=== PATIENT | male | born 1950 | race Caucasian/White ===

== ENCOUNTER → 2016-12-19 | Outpatient (CLI) | payer OTHER ==
[~2016-12-19] VITALS: Ht 190.5 cm; Wt 135.8 kg
[~2016-12-19] MED LIST: ALLEGRA ALLERGY60 MG PO; ALPRAZOLAM 0.50.5 M1 PO; CELEBREX 200 M200 M1 PO; CELEBREX 200 M200 MG PO; COLACE 100 MG100 MG PO; CYMBALTA30 MG PO; CYMBALTA60 MG PO; GLYCOLAX POWDER17 GM PO; HYDROCODON-ACE1 EAC7 PO; HYDROCODONE; HYDROCODONE-AP1 EA11 PO; HYDROCODONE-APA1 TA1 PO; LIPITOR 20 MG T20 M1 PO; MEDROLDOSEPACK PO; MOBIC15 MG PO; NEURONTIN 300300 M1 PO; NORCO 7.5-3251 EACH PO; OXYCODONE-ACET1 EAC2 PO; OXYCONTIN CR 2020 MG PO; OXYCONTIN10 MG PO; OXYCONTIN15 MG PO; PERCOCET 10-321 EACH PO; PERCOCET 7.5-31 EACH PO; PRINIVIL40 MG PO; ROBAXIN 750 MG750 M1 PO; TIZANIDINE HCL2 M1 PO; TORADOL 10 MG T10 MG PO; ZANAFLEX4 MG PO; ZESTORETIC 20-1 EAC3 PO; ZYRTEC 10 MG TA10 MG PO; [UNRECOGNIZED DRUG - OTHER] PO
--- NOTE | ~2016-12-19 | HPC ---
[facility] [place] [address] PAIN MANAGEMENT CONSULTATION Name: JENNIFERVINAYAK E Room #: REG [facility] Marya#: [id number] Admission: 12/19/16 Attend Phys: Lonny Pina DO Discharge: Date of : 48 Report #: [id number] THIS REPORT FOR: //name// CC: Vinayak Pina The patient is a very pleasant 66-year-old gentleman being treated for symptomatic lumbar radiculopathy. He has done well with occasional epidural injections, he had an injections in October, February, and July 2016. He returns to pain clinic today noting pain has begun to recur. It is in the low back, left buttock, and leg to the knee. He is having a little bit of pain in the right side as well. He describes it as a dull chronic pain up to 4 at present, gets worse with activity, standing and sitting. Some relief when he is recumbent. PHYSICAL EXAMINATION: Shows a pleasant 66-year-old gentleman, BMI is 37.4 kg/m2. Blood pressure is modestly elevated at 151/86, pulse 81, and respirations 20. Rises from chair using armrest. Gait is tandem. There is diffuse tenderness across the low back, positive straight leg raise on that left side with slight decreased left hip flexion, lower extremity extension strength. Reviewed diagnostic findings including CT lumbar spine from 2012 noting spondylosis at L5-S1 with facet joint arthropathy causing bilateral neural foraminal narrowing at L4-L5. ASSESSMENT: 1. Symptomatic lumbar radiculopathy by clinical exam, history of lumbar spondylosis, and myofascial pain. 2. Acute exacerbation of lumbar radiculopathy. RECOMMENDATIONS: 1. We will renew Meloxicam 15 mg 1 a day. 2. The patient notes hydrocodone really does not afford much relief and causes significant constipation, we will trial Robaxin 750 mg t.i.d. for spasm with 2 refills. 3. Lumbar epidural injection under fluoroscopy today at L5-S1. PROCEDURE: Lumbar epidural injection under fluoroscopy. PROCEDURE NOTE: After both written and informed consent to include risk of spinal cord damage, increased pain, weakness and dural puncture, the patient was taken to the fluoroscopy suite, placed in the prone position. After sterile prep and drape, a skin wheal with lidocaine was raised. A 22-gauge epidural Tuohy needle was inserted in the midline at L5-S1 with good loss to resistance. Negative aspiration for cerebrospinal fluid or blood was noted. Then 1 mL of Omnipaque under biplanar fluoroscopy showed good spread within the epidural space. This was followed with 80 mg of triamcinolone plus 1 mL of 1.5% [place] [address] PAIN MANAGEMENT CONSULTATION Name: VINAYAK RODRIGUEZ Room #: CHAS Malhotra#: [id number] Admission: 12/19/16 Attend Phys: Lonny Pina DO Discharge: Date of : 49 Report #: [id number] preservative-free Xylocaine, 0.5 mL Xylocaine was then injected to flush the needle; it was removed. The patient was monitored for an appropriate period of time and discharged in good and stable condition. <ELECTRONICALLY SIGNED> By: Lonny Pina DO 12/20/16 0925 [id number] Lonny Pina DO /nt
[2016-12-19 10:36] VITALS: BP 151/86
== END ==
LOC: PAIN 08:03
DX: M47.26 Other spondylosis with radiculopathy, lumbar region (principal); E11.9 Type 2 diabetes mellitus without complications; I10 Essential (primary) hypertension

== ENCOUNTER → 2017-08-08 | Outpatient (CLI) | payer OTHER ==
[~2017-08-08] VITALS: Ht 190.5 cm; Wt 136.4 kg
--- NOTE | ~2017-08-08 | HPC ---
[facility] [place] [address] PAIN MANAGEMENT CONSULTATION Name: JENNIFERVINAYAK E [facility] #: [facility] [id number] Admission: 08/08/17 Attend Phys: Lonny Pina DO Discharge: Date of : 48 Report #: [id number] THIS REPORT FOR: //name// CC: Vinayak Pina HISTORY OF PRESENT ILLNESS: The patient is a very pleasant 67-year-old gentleman well known to the pain clinic. He has been treated for symptomatic lumbar radiculopathy with excellent relief with epidural injections, occasionally over the past several years. Last injection was on 12/19/2016. He had 55% relief for 7 months, pain has begun to recur, although it is little bit different. He notes pain is in the low back, little bit in the right hip, more than the left. Describes a dull cramping sensation with his back "locking up." Rates his pain at 3 on a VAS, it does get worse throughout the day. PHYSICAL EXAMINATION: Shows a 67-year-old gentleman, BMI is 37.6 kilograms per meter squared. Vital signs stable as noted in the EMR. Rises from chair using armrest. Gait is tandem. Lower extremity strength is preserved. Straight leg raise negative. Tender over the SI joint with a positive SVETA test bilaterally, positive pelvic distraction, positive Gaenslen's and positive pelvic compression. He does have a component of right radicular pain, modestly positive straight leg raise on the right. ASSESSMENT: 1. Symptomatic sacroiliac joint dysfunction by clinical exam. 2. History of lumbar radiculopathy by history. RECOMMENDATIONS: 1. After discussion with the patient today, we have elected to renew hydrocodone 7.5/325, dispensed 60 tablets to take p.r.n. 2. Proceed with bilateral SI joint injection under fluoroscopy. If this does not afford adequate relief, we will consider repeat lumbar epidural injection. The patient states pain feels somewhat similar to his prior issues, but again physical exam definitely points to more SI mediated pain. PROCEDURE: Bilateral SI joint injection under fluoroscopy. PROCEDURE NOTE: After written and informed consent was obtained including risk of infection, nerve trauma, increased pain and weakness, the patient wishes to proceed. The patient was taken to the fluoroscopy suite, placed in the prone position. The sacroiliac joint was visualized using the C-arm, turned in an oblique fashion to align the joint. The skin overlying the area was cleansed with ChloraPrep. Skin wheal with Xylocaine was raised. A 22 gauge spinal needle was inserted into the inferior aspect of the joint. A low volume extension tubing was then attached to the needle after the stylet was removed. Negative aspiration was accomplished. A 1 mL of Omnipaque was injected which showed spread within the SI joint. 40 mg triamcinolone plus 2 mL of 0.5% [address] [address] PAIN MANAGEMENT CONSULTATION Name: JENNIFERVINAYAK E Room #: REG [facility] Malhotra#: [id number] Admission: 08/08/17 Attend Phys: Lonny Pina DO Discharge: Date of : 48 Report #: [id number] preservative-free bupivacaine was injected into the joint. Needle was removed. Attention was then turned to the contralateral joint which was treated in an identical fashion. After both needles were removed the prep was washed off. Two Band-Aids were applied over the puncture sites. The patient was allowed to ambulate to the recovery room, monitored for an appropriate period of time, discharged in good and stable condition. By: 1212 2235 Lonny Pina DO /nt
[2017-08-08 11:02] VITALS: BP 138/83
== END | disposition home or self-care (01) ==
LOC: PAIN 07:00
DX: M53.3 Sacrococcygeal disorders, not elsewhere classified (principal); M54.16 Radiculopathy, lumbar region; Z79.891 Long term (current) use of opiate analgesic; Z79.899 Other long term (current) drug therapy; Z91.041 Radiographic dye allergy status; Z98.890 Other specified postprocedural states

== ENCOUNTER → 2017-08-15 | Outpatient (CLI) | payer OTHER ==
[~2017-08-15] VITALS: Ht 193 cm; Wt 135.2 kg
[~2017-08-15] MED LIST changes: +HYDROCHLOROTH12.5 M1 PO; +LISINOPRIL20 MG PO; +NORVASC2.5 MG PO
--- NOTE | ~2017-08-15 | HPC ---
[facility] [place] [address] PAIN MANAGEMENT CONSULTATION Name: JENNIFERVINAYAK E Room #: REG [facility] Marya#: [id number] Admission: 08/15/17 Attend Phys: Lonny Pina DO Discharge: Date of : 49 Report #: [id number] THIS REPORT FOR: //name// CC: Vinayak Pina HISTORY OF PRESENT ILLNESS: The patient is a very pleasant 67-year-old gentleman well known to pain clinic, typically treated for symptomatic lumbar radiculopathy, was seen in pain clinic on 08/08/2017. Pain began to recur but is a little different. He had pain over the SI joints with positive Patricio test, positive distraction and positive Gaenslen's test. I proceeded with bilateral SI joint injections. He returns to pain clinic today noting that the SI mediated back pain is overall improved, per patient some 50% for a few days but ongoing lumbar radicular pain radiating on the lateral aspect of the left leg into the lower leg continues. He rates the pain of 4 on a VAS. PHYSICAL EXAMINATION: GENERAL: Otherwise, relatively unchanged, 67-year-old gentleman. VITAL SIGNS: BMI is 36.3 kilograms per meter squared. MUSCULOSKELETAL: Rises from chair using armrest. Diffuse tenderness across the low back, though the SI tests are less remarkable today. Does have a positive straight leg raise on the left with slight decreased plantar flexion strength. Reviewed diagnostic findings again somewhat dated from 2012 but does have degenerative changes with disk bulging L2-L3 through L5-S1. There is anterolisthesis at L5-S1. ASSESSMENT: Symptomatic lumbar radiculopathy with clinical exam and history. RECOMMENDATIONS: Epidural injection under fluoroscopy today, L5-S1. Follow up simply as needed. PROCEDURE: Lumbar epidural injection under fluoroscopy. PROCEDURE NOTE: After both written and informed consent to include risk of spinal cord damage, increased pain, weakness and dural puncture, the patient was taken to the fluoroscopy suite, placed in the prone position. After sterile prep and drape, a skin wheal with lidocaine was raised. A 22-gauge epidural Tuohy needle was inserted in the midline at L5-S1 with good loss to resistance. Negative aspiration for cerebrospinal fluid or blood was noted. Then 1 mL of Omnipaque under biplanar fluoroscopy showed good spread within the epidural space. This was followed with 80 mg of triamcinolone plus 1 mL of 1.5% preservative-free Xylocaine, 0.5 mL Xylocaine was then injected to flush the [address] [address] PAIN MANAGEMENT CONSULTATION Name: VINAYAK RODRIGUEZ [facility] [id number] Admission: 08/15/17 Attend Phys: Lonny Pina DO Discharge: Date of : 48 Report #: [id number] needle; it was removed. The patient was monitored for an appropriate period of time and discharged in good and stable condition. By: 1228 2137 Lonny Pina DO /bernadine
[2017-08-15 10:52] VITALS: BP 152/97
== END | disposition home or self-care (01) ==
LOC: PAIN 06:23
DX: M54.16 Radiculopathy, lumbar region (principal); G89.29 Other chronic pain; Z98.890 Other specified postprocedural states; Z91.041 Radiographic dye allergy status; Z79.899 Other long term (current) drug therapy; Z79.891 Long term (current) use of opiate analgesic

== ENCOUNTER → 2018-01-23 | Outpatient (CLI) | payer OTHER ==
[~2018-01-23] VITALS: Ht 193 cm; Wt 83.0 kg
--- NOTE | ~2018-01-23 | HPC ---
[facility] [address] [place] [address] PAIN MANAGEMENT CONSULTATION Name: JENNIFERVINAYAK Alicia [facility] #: [facility] [id number] Admission: 01/23/18 Attend Phys: Lonny Pina, DO Discharge: Date of : 49 Report #: [id number] THIS REPORT FOR: //name// CC: Vinayak Pina The patient is an extremely pleasant 67-year-old gentleman well known to pain clinic, typically treated for symptomatic lumbar radiculopathy. He does well with occasional epidural injections, last injection was 08/15/2017. That afforded 80% relief for 4-5 months. Pain has begun to recur without antecedent trauma and overuse. Notes pain is primarily low back, left buttock and leg, posterior aspect. Fortunately, he denies any myelopathic symptoms, no weakness, paresthesia or bowel or bladder continence changes. Rates the pain as a 3 on a VAS at present, but with activity, gets up to 6-8. He has stopped taking meloxicam, takes an occasional ibuprofen and methocarbamol for spasm. PHYSICAL EXAMINATION: Shows a pleasant 67-year-old gentleman, 6 feet 4 inches, BMI is 22.3 kilograms per meter squared. Blood pressure is 155/77, pulse 80S, respirations 15. Alert and oriented to person, place and time, judged to be a reasonable historian. Rises from chair easily. Gait is modestly antalgic. Positive straight leg raise on the right with slight decreased plantar flexion strength. 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 Suspect, this has only gotten worse over the last 5 years. ASSESSMENT: Symptomatic lumbar radiculopathy by clinical exam and history in a gentleman who has done well with occasional epidural injections. RECOMMENDATION: Lumbar epidural injection under fluoroscopy today, left midline L5-S1. Follow up simply as needed. PROCEDURE: Midline epidural injection under fluoroscopy. PROCEDURE NOTE: After both written and informed consent to include risk of spinal cord damage, increased pain, weakness and dural puncture, the patient was taken to the fluoroscopy suite, placed in the prone position. After sterile prep and drape, a skin wheal with lidocaine was raised. A 22-gauge epidural Tuohy needle was inserted in the midline at L5-S1 with good loss to resistance. Negative aspiration for cerebrospinal fluid or blood was noted. No Omnipaque was used secondary to an IODINE allergy. This was followed with 80 mg of triamcinolone plus 1 mL of 1.5% preservative-free Xylocaine, 0.5 mL Xylocaine was then injected to flush the needle; it was removed. The patient was [address] [address] PAIN MANAGEMENT CONSULTATION Name: VINAYAK RODRIGUEZ Alicia Room #: REG [facility] Malhotra#: [id number] Admission: 01/23/18 Attend Phys: Lonny Pina DO Discharge: Date of : 49 Report #: [id number] monitored for an appropriate period of time and discharged in good and stable condition. <ELECTRONICALLY SIGNED> By: Lonny Pina DO 01/26/18708 1203 06 Lonny Pina DO /nt
[2018-01-23 09:08] VITALS: BP 155/77
== END | disposition home or self-care (01) ==
LOC: PAIN 07:26
DX: M54.16 Radiculopathy, lumbar region (principal); G89.29 Other chronic pain; Z98.890 Other specified postprocedural states; Z91.041 Radiographic dye allergy status; Z79.899 Other long term (current) drug therapy

== ENCOUNTER → 2018-08-04 | Outpatient (CLI) | payer OTHER ==
[~2018-08-04] VITALS: Ht 190.5 cm; Wt 133.9 kg
--- NOTE | ~2018-08-04 | P ---
[facility] [place] [address] PROCEDURE REPORT Name: VINAYAK RODRIGUEZ Alicia [facility] [id number] Admission: 08/04/18 Attend Phys: Reginald Pina DO Discharge: Date of : 48 Report #: [id number] THIS REPORT FOR: //name// CC: Nj Reese MD DATE OF SERVICE: 08/04/2018 DESCRIPTION OF PROCEDURE: L5-S1 left paramedian epidural steroid injection under fluoroscopic guidance. After obtaining written consent, the patient was taken back to fluoroscopy suite, placed in prone position with pillow under abdomen to decrease lumbar lordosis. Skin overlying lumbosacral area then prepped and draped in aseptic fashion. The L5-S1 vertebral interspace identified by AP fluoroscopy. Skin and subcutaneous tissue overlying target site of injection anesthetized with 3 mL of 1% lidocaine. A 20-gauge 3-1/2-inch Tuohy needle advanced under fluoroscopic guidance towards the epidural space using left paramedian approach. Epidural space identified using loss of resistance to air technique. Due to a contrast allergy, no contrast agent was utilized in today's procedure. Needle positioning was confirmed using both AP and lateral fluoroscopy. After negative aspiration for heme or cerebrospinal fluid, 5 mL of a solution containing 2 mL, 40 mg per mL, 80 mg total triamcinolone, 3 mL lidocaine 1% injected slowly. Needle retracted longterm, flushed with 1 mL of 1% lidocaine and removed. Sterile bandage placed over injection site. No new motor deficits present in the lower extremity following procedure. The patient tolerated procedure well, carefully escorted to recovery room in stable condition. No apparent complications. After meeting discharge criteria, the patient discharged home. By: 1126 1607 Reginald Pina DO /nt
--- NOTE | ~2018-08-04 | HPC ---
[facility] [address] [place] [address] PAIN MANAGEMENT CONSULTATION Name: VINAYAK RODRIGUEZ [facility] #: [facility] [id number] Admission: 08/04/18 Attend Phys: Reginald Pina DO Discharge: Date of : 48 Report #: [id number] THIS REPORT FOR: //name// CC: Nj Reese MD DATE OF SERVICE: 08/04/2018 CHIEF COMPLAINT: Low back pain, bilateral lower extremity pain with paresthesias, left greater than right. HISTORY OF PRESENT ILLNESS: As you know, the patient is a very pleasant 68-year-old male who was followed by my partner, Dr. Lonny Pina for lumbar radicular symptoms secondary to displacement of lumbar intervertebral disk. He has done very well with previous lumbar epidural injections, returning today in followup visit requesting to undergo next in the series of epidural injections to address his reported 2-3/10 pain. The patient states he received excellent benefit with previous epidural injection noticing 90% improvement in overall pain for nearly 5 months. He returns today with pain level of 2-3/10 stating his pain is dull, aching, tight, numbness when describing symptoms; exacerbated with sitting and repositioning; improves with lying down, medications and epidural injections. He returns today denying any new injury, new trauma or any changes in medical history since our last visit. ALLERGIES: CONTRAST AGENT. CURRENT MEDICATIONS: Duloxetine 30 mg once a day, lisinopril 20 mg per day, methocarbamol 750 mg 3 times a day, fexofenadine 60 mg once a day, meloxicam 15 mg 1/2 tab b.i.d., atorvastatin 20 mg per day, Colace 100 mg per day. SOCIAL HISTORY: The patient denies tobacco, alcohol, IV or illicit drug use. He is unaccompanied today. IMAGING: No new imaging available. PQRS: The patient has osteoarthritic changes in the low back. He does not suffer from rheumatoid arthritis. He is placing pain intensity 2-3/10. He is not a fall risk, has not had a fall in the last 3 months. He is not on blood thinners, but is treated for hypertension. He is not on a long-term opioid medications. He is a low risk for opioid addiction. He is placing his pain impact score at 12/70, mild interference of daily activities secondary to pain. PHYSICAL EXAMINATION: VITAL SIGNS: Blood pressure 144/84, pulse 81, respiratory rate [address] [address] PAIN MANAGEMENT CONSULTATION Name: VINAYAK RODRIGUEZ Room #: REG [facility]#: [id number] Admission: 08/04/18 Attend Phys: Reginald Pina DO Discharge: Date of : 49 Report #: [id number] unlabored, the patient is 96% on room air, height 6 feet 3 inches tall, weight 295.2 pounds, BMI calculated 36.9. GENERAL: Well-developed, well-nourished, well-hydrated 68-year-old male appearing stated age, placing current pain score 2-3/10. HEENT: Normocephalic, atraumatic. Pupils equal, round, reactive to light. EXTREMITIES: Show no clubbing, no cyanosis, no edema. MUSCULOSKELETAL: Lower extremity strength is equal and symmetrical 5/5. He is intact to light touch from L1 through S2 dermatomes. Seated straight leg raising negative. Supine straight leg raising positive on the left. Patricio's test negative. Modified Gaenslen's is positive for axial low back pain. Ankle clonus negative. Gait mildly antalgic favoring right lower extremity over left. ASSESSMENT: 1. Symptomatic lumbar radiculopathy. 2. Displacement of lumbar intervertebral disk with radiculopathy. 3. Lumbosacral spondylosis with radiculopathy. 4. Chronic intractable pain. PLAN: 1. The patient returns today in followup visit requesting to undergo epidural injection under fluoroscopic guidance. He has done very well with previous epidural injection noticing 90% improvement in overall pain lasting for nearly 5 months. He returns today to undergo next in the series in hopes of building on success of previous intervention. The patient was advised risks and benefits of the procedure, states he understood and wished to proceed. 2. No medication changes made at today's visit. The patient will continue current medical therapy as previously prescribed. 3. We will see the patient back in followup visit on an as needed basis for possible next in the series of lumbar epidural injections. By: 1126 1604 Reginald Pina DO /nt
[2018-08-04 08:56] VITALS: BP 144/84
== END | disposition home or self-care (01) ==
LOC: PAIN 08:26
DX: M51.16 Intervertebral disc disorders with radiculopathy, lumbar region (principal); M47.27 Other spondylosis with radiculopathy, lumbosacral region; I10 Essential (primary) hypertension; G89.29 Other chronic pain; Z91.041 Radiographic dye allergy status; Z79.899 Other long term (current) drug therapy; Z98.890 Other specified postprocedural states

== ENCOUNTER → 2018-12-01 | Outpatient (CLI) | payer OTHER ==
[~2018-12-01] VITALS: Ht 190.5 cm; Wt 139.4 kg
[~2018-12-01] MED LIST changes: +ZYRTEC10 M2 PO
--- NOTE | ~2018-12-01 | HPC ---
[facility] [address] [place] [address] PAIN MANAGEMENT CONSULTATION Name: VINAYAK RODRIGUEZ Room #: REG CLStormy Malhotra#: [id number] Admission: 12/01/18 ������������������ Attend Phys: Reginald Pina DO Discharge: ������������������ Date of : 48 Report #: [id number] THIS REPORT FOR: //name// CC: Nj Pina DATE OF SERVICE: 12/01/2018 CHIEF COMPLAINT: Low back pain, bilateral lower extremity pain with paresthesias, left greater than right. HISTORY OF PRESENT ILLNESS: As you know, the patient is a very pleasant 68-year-old male, followed by my partner, Dr. Lonny Pina for lumbar radicular symptoms secondary to displacement of a lumbar intervertebral disk. He has undergone epidural injections with good efficacy. He returns today in followup visit requesting to undergo next in the series of lumbar epidural injections to address lumbar radicular symptoms. He is placing his current pain score at 5/10. He denies new injury, new trauma or any changes in medical history since our last visit. He is also requesting refill of his hydrocodone for which he takes p.r.n. He returns to undergo this epidural injection today. ALLERGIES: CONTRAST AGENT. CURRENT MEDICATIONS: Duloxetine 30 mg once a day, lisinopril 20 mg once a day, methocarbamol 750 mg 3 times a day, fexofenadine 60 mg once a day, meloxicam 15 mg 1/2 tab b.i.d., atorvastatin 20 mg a day, Colace 100 mg per day, hydrocodone 7.5/325 one tab p.o. q. 8 hours p.r.n. for pain. SOCIAL HISTORY: The patient denies tobacco, alcohol, IV or illicit drug use. He is unaccompanied today. IMAGING: No new imaging available. PQRS: The patient has known osteoarthritic changes of the lumbar spine. No rheumatoid arthritis. He is placing his current pain score at 5/10. He is not a fall risk, has not have fallen in the last 3 months. He is not on blood thinners. He is treated for hypertension. He is on chronic opioids and has a low opiate addiction potential. He is placing pain impact score at 12/70, mild interference of daily activities secondary to pain. PHYSICAL EXAMINATION: VITAL SIGNS: Blood pressure 144/88, pulse 93, respiratory rate 16 and unlabored. The patient is 95% on room air, height 6 feet 3 inches tall, weight 307.4 pounds, BMI calculated 38.4. GENERAL: Well-developed, well-nourished, well-hydrated, [place] [address] PAIN MANAGEMENT CONSULTATION Name: VINAYAK RODRIGUEZ Alicia Room #: REG SILVIA Malhotra#: [id number] Admission: 12/01/18 ������������������ Attend Phys: Reginald Pina DO Discharge: ������������������ Date of : 48 Report #: [id number] 68-year-old male, appearing stated age. Pain is rated at 5/10. HEENT: Normocephalic, atraumatic. Pupils are equal, round, reactive to light. EXTREMITIES: Show no clubbing, no cyanosis, and no edema. MUSCULOSKELETAL: Lower extremity strength is symmetrical 5/5, intact to light touch from L1 through S2 dermatomes. Seated straight leg raising mildly positive left. Supine straight leg raising positive on the left. SVETA test negative. Gait mildly antalgic favoring left lower extremity over right. Pain is elicited with standing from a seated position. ASSESSMENT: 1. Symptomatic lumbar radiculopathy. 2. Displacement of lumbar intervertebral disk with radiculopathy. 3. Lumbosacral spondylosis with radiculopathy. 4. Chronic intractable pain. PLAN: 1. The patient returns today in followup visit requesting to undergo a lumbar epidural injection under fluoroscopic guidance. He notes excellent benefit with previous epidural injection performed in 07/2018. He gives a 70% improvement in overall symptoms with that injection. Unfortunately, his symptoms have begun to return. He returns in followup visit to undergo next in the series of epidural injections, advised of risks and benefits, states understood and wished to proceed. 2. The patient has requested a refill of hydrocodone. We have provided him with [place] 7.5/325 one tab p.o. q. 8 hours p.r.n. for pain. I have given the patient #60 tablets, releasing today. He rarely uses these medications and has not had a refill of this medication since July. We will provide the prescription today with the understanding he will use this on an as needed basis. We reviewed the fact that opiate medications are being used to provide analgesia adequate to support activities of daily living, not attempting to achieve a specific pain score on the 0-10 Visual Analog Scale. The current opiate medications are providing sufficient analgesia to allow the patient to participate in activities of daily living. The patient is not exhibiting any aberrant behavior suggestive of drug diversion. The patient is not having any adverse reactions to medications. The patient is not suffering from daytime somnolence or mental acuity changes. The patient is managing opiate-induced constipation with appropriate rkhr-utl-djtjetp agents and dietary considerations. The patient was counseled on concern for caution with operating a motor vehicle while using opiate medications. A physical exam was performed and the patient's functional status was evaluated. All patients with back pain were advised against the bed rest greater than 4 days and were advised to return to normal activities. Pain score assessment was [facility] [address] [place] [address] PAIN MANAGEMENT CONSULTATION Name: VINAYAK RODRIGUEZ [id number] Admission: 12/01/18 ������������������ Attend Phys: Reginald Pina DO Discharge: ������������������ Date of : 48 Report #: [id number] noted and the treatment plan was reviewed with the patient. All current medications, both prescribed and OTC were reviewed and reconciled on the electronic medical record. Tobacco screening was accomplished and smoking cessation was advised when indicated. BMI was noted and diet/exercise modification was recommended for all patients following outside normal parameters. I reviewed with the patient today their responsibilities to safeguard prescription medications, reviewed their responsibility to utilize medications only as prescribed by the physician. They are to seek and receive pain medications only from 1 physician group ( [facility]). They are to use 1 pharmacy and keep the clinic informed if they change pharmacies. Their responsibilities include making followup visits in a timely fashion and to avoid abrupt discontinuation of medication usage. Their responsibilities further include bringing their medications (bottles from the pharmacy with residual pills) to the visit for possible confirmation of pill counts and the patient understands it is their responsibility to submit to random drug screens to ensure both that the medications prescribed are present, and that no other controlled substances are present. All prescriptions provided today were generated electronically. 3. The patient to return to our clinic on an as needed basis for possible next in the series of epidural injections. PROCEDURE NOTE DESCRIPTION OF PROCEDURE: L5-S1 paramedian epidural steroid injection under fluoroscopic guidance. After obtaining written consent, the patient was taken back to fluoroscopy suite, placed in prone position with pillow under abdomen to decrease lumbar lordosis. Skin overlying lumbosacral area was then prepped and draped in aseptic fashion. The L5-S1 vertebral interspace identified by AP fluoroscopy. Skin and subcutaneous tissue overlying target site of injection anesthetized with 3 mL of 1% lidocaine. A 20-gauge 3-1/2 inch Tuohy needle advanced under fluoroscopic guidance towards the epidural space using a paramedian approach. Epidural space identified using loss of resistance to air technique. After negative aspiration for heme or cerebrospinal fluid, confirmation of needle position was done with AP and lateral fluoroscopy due to a contrast allergy. After negative aspiration for heme or cerebrospinal fluid, 5 mL of a solution containing 2 mL 40 mg per mL, 80 mg total triamcinolone, 3 mL lidocaine 1% injected slowly. Needle was then retracted approximately half way, flushed with 1 mL of 1% lidocaine and then removed. Sterile bandage placed over injection site. No new motor deficits present in the lower extremities following procedure. [address] [address] PAIN MANAGEMENT CONSULTATION Name: VINAYAK RODRIGUEZ Room #: REG CLStormy Malhotra#: [id number] Admission: 12/01/18 ������������������ Attend Phys: Reginald Pina DO Discharge: ������������������ Date of : 48 Report #: [id number] The patient tolerated the procedure well, carefully escorted to recovery room in stable condition. No apparent complications. After meeting discharge criteria, the patient discharged home. ��������������������������������������������� ���������������������������������������� By: ��������������������������������������������� [id number] Reginald Pina DO /nt
[2018-12-01 14:29] VITALS: BP 144/88
--- NOTE | 2018-12-01 14:45 | NUR ---
Pain Clinic Assessment: 1. History of Osteoarthritis: Not Applicable History of Rheumatoid Arthritis: Not Applicable 2. Height: 6 ft. 3 in. 190.5 cm. Weight: 307.4 lb. oz. 139.436 kg. Patient's BMI: 38.4 3. Vital Signs: BP: 144/88 Pulse: 93 Resp: 16 Temp: 02 Sat: 95 ECG Mon: 4. Pain Intensity: 5 5. Fall Risk: Dizziness: N Needs help standing or walking: N Fallen in the last 3 months: N Fall risk comments: 6. Patient on Blood Thinner: None 7. History of Hypertension: Y 8. Opioid Therapy greater than 6 weeks: N Opiate Contract Signed: 9. Risk Assessment Tool Provided: LOW RISK 0/3 10. Functional Assessment Tool: 12 11. Recreational Drug Use: Never Drug Type: Tobacco Use: Never Smoker Tobacco Type: Amount or Packs/day: How Many Years: Alcohol Use: Yes Frequency: Quant:
== END | disposition home or self-care (01) ==
LOC: PAIN 07:09
DX: M51.16 Intervertebral disc disorders with radiculopathy, lumbar region (principal); M47.27 Other spondylosis with radiculopathy, lumbosacral region; G89.29 Other chronic pain; I10 Essential (primary) hypertension; E66.09 Other obesity due to excess calories; Z91.041 Radiographic dye allergy status; Z79.899 Other long term (current) drug therapy; Z79.891 Long term (current) use of opiate analgesic; Z68.38 Body mass index [BMI] 38.0-38.9, adult; Z98.890 Other specified postprocedural states

== ENCOUNTER → 2019-05-25 | Outpatient (CLI) | payer OTHER ==
[~2019-05-25] VITALS: Ht 190.5 cm; Wt 140.4 kg
[~2019-05-25] MED LIST changes: +LEXAPRO 10 MG T10 M1 PO
[2019-05-25 09:10] VITALS: BP 138/86
--- NOTE | 2019-05-25 09:28 | NUR ---
Pain Clinic Assessment: 1. History of Osteoarthritis: BACK History of Rheumatoid Arthritis: Not Applicable 2. Height: 6 ft. 3 in. 190.5 cm. Weight: 309.6 lb. oz. 140.434 kg. Patient's BMI: 38.7 3. Vital Signs: BP: 138/86 Pulse: 80 Resp: 16 Temp: 02 Sat: 96 ECG Mon: 4. Pain Intensity: 3 5. Fall Risk: Dizziness: N Needs help standing or walking: N Fallen in the last 3 months: N Fall risk comments: 6. Patient on Blood Thinner: None 7. History of Hypertension: Y 8. Opioid Therapy greater than 6 weeks: N Opiate Contract Signed: 9. Risk Assessment Tool Provided: LOW RISK 08/27 10. Functional Assessment Tool: 11. Recreational Drug Use: Never Drug Type: Tobacco Use: Never Smoker Tobacco Type: Amount or Packs/day: How Many Years: Alcohol Use: Yes Frequency: Daily Quant: 3
--- NOTE | 2019-06-01 07:47 | HPC ---
[facility] [address] [place] [address] PAIN MANAGEMENT CONSULTATION Name: VINAYAK RODRIGUEZ Room #: REG SILVIA Marya#: [id number] Admission: 05/25/19 Attend Phys: Reginald Pina DO Discharge: Date of : 48 Report #: [id number] THIS REPORT FOR: //name// CC: Nj Pina DATE OF SERVICE: 05/25/2019 REFERRING PHYSICIAN: Nj Eckert MD CHIEF COMPLAINT: Low back pain, bilateral lower extremity pain with paresthesia, left greater than right. HISTORY OF PRESENT ILLNESS: As you know, the patient is a 69-year-old male followed by my partner, Dr. Lonny Pina, for lumbar radicular symptoms secondary to the displacement of a lumbar intervertebral disk with radicular symptoms radiating down both legs. He has undergone previous epidural injections with good efficacy. He returns today requesting to undergo next in the series of epidural injections. He is also requesting refill of his hydrocodone that he takes on an as needed basis. The patient reports no side effects to medication. He states the combination of medication with epidural injection provides good benefit. Most recent epidural injection reportedly gave 70% improvement in overall pain for greater than 2 months. He has symptoms now that are numbness, tingling, dull, tight and sharp in sensation, exacerbated with standing, twisting and turning, lifting and sitting on hard surfaces, improves with lying down, medications and epidural injections. He returns today to undergo next in the series. ALLERGIES: CONTRAST AGENT. CURRENT MEDICATIONS: Duloxetine, lisinopril, methocarbamol, fexofenadine, meloxicam, atorvastatin, Colace, and hydrocodone. SOCIAL HISTORY: The patient denies tobacco, alcohol, IV or illicit drug use. He is unaccompanied today. IMAGING: No new imaging available. PQRS: The patient has known arthritic changes of the lumbar spine. He does not have a diagnosis of rheumatoid arthritis. He is placing pain intensity today 3/10. He is not a fall risk, has not had a fall in last 3 months. He is not on blood thinners, but is treated for hypertension. He is on chronic opioids, but does have a low opiate addiction potential. Pain impact score 16/70, mild interference of daily activities secondary to pain. [address] [address] PAIN MANAGEMENT CONSULTATION Name: VINAYAK RODRIGUEZ Alicia Room #: REG CLStormy Malhotra#: [id number] Admission: 05/25/19 Attend Phys: Reginald Pina DO Discharge: Date of : 48 Report #: [id number] PHYSICAL EXAMINATION: VITAL SIGNS: Blood pressure 138/86, pulse is 80, respiratory rate 16 and unlabored. The patient is 96% on room air, height 6 feet 3 inches tall, weight 309.6 pounds, BMI calculated 38.7. GENERAL: Well-developed, well-nourished, well-hydrated exogenously obese 69-year-old male, appearing stated age, pain is rated at 3/10. HEENT: Normocephalic, atraumatic. Pupils equal, round, reactive to light. EXTREMITIES: Show no clubbing, no cyanosis, and no edema. MUSCULOSKELETAL: Lower extremity strength equal and symmetrical today. He has normal muscle bulk and tone when comparing left lower extremity to right. Seated straight leg raising negative. Supine straight leg raising positive, left. SVETA'S test is negative. Modified Gaenslen's positive for axial low back pain. Gait appears normal. Stance slightly forward flexed lumbar spine, mild loss of lordotic curvature. ASSESSMENT: 1. Symptomatic lumbar radiculopathy. 2. Displacement of lumbar intervertebral disk with radiculopathy. 3. Lumbosacral spondylosis with radiculopathy. 4. Lumbar degeneration. 5. Chronic intractable pain. PLAN: 1. The patient returns today in followup visit requesting to undergo next in the series of lumbar epidural injections under fluoroscopic guidance to address lumbar radicular pain. The patient has been advised of the risks and benefits of this procedure, states he understood and wished to proceed. 2. The patient was provided refill prescription of hydrocodone 7.5/325 one tablet every 8 hours p.r.n. for pain. I have given the patient #60 tablets. The patient was advised to take medication only when necessary, is not to take the medication prophylactically. We have reviewed the patient's PDMP and noticed no concerning entries. 3. We will see the patient back in followup visit for the next in a series of lumbar epidural injections. PROCEDURE NOTE DESCRIPTION OF PROCEDURE: L5-S1 parasagittal epidural steroid injection under fluoroscopic guidance. After obtaining written consent, the patient was taken back to fluoroscopy suite, placed in prone position with pillow under abdomen to decrease lumbar lordosis. Skin overlying lumbosacral area then prepped and draped in aseptic fashion. The L5-S1 vertebral interspace was identified by AP fluoroscopy. Skin and subcutaneous tissue overlying target site of injection anesthetized with 3 mL of 1% lidocaine. [address] [address] PAIN MANAGEMENT CONSULTATION Name: VINAYAK RODRIGUEZ Room #: REG SILVIA Malhotra#: [id number] Admission: 05/25/19 Attend Phys: Reginald Pina DO Discharge: Date of : 48 Report #: [id number] A 20-gauge 3-1/2 inch Tuohy needle advanced under fluoroscopic guidance towards the epidural space using a parasagittal approach. Epidural space identified using loss of resistance to air technique. Due to a contrast allergy, no contrast agent was used in today's procedure. Needle position was confirmed using both AP and lateral fluoroscopy. After negative aspiration for heme or cerebrospinal fluid, 5 mL of a solution containing 2 mL 40 mg per mL, 80 mg total triamcinolone along with 3 mL of lidocaine 1% injected slowly. Needle then retracted approximately half way, flushed with 1 mL of 1% lidocaine and then removed. Sterile bandage placed over injection site. No new motor deficits present in the lower extremity following procedure. The patient tolerated the procedure well, carefully escorted to recovery room in stable condition. No apparent complications. After meeting discharge criteria, the patient discharged home. <ELECTRONICALLY SIGNED> By: Reginald Pina DO 06/01/19 [id number] Reginald Pina DO /nt
== END | disposition home or self-care (01) ==
LOC: PAIN 06:49
DX: M51.16 Intervertebral disc disorders with radiculopathy, lumbar region (principal); M47.27 Other spondylosis with radiculopathy, lumbosacral region; G89.29 Other chronic pain; I10 Essential (primary) hypertension; Z88.8 Allergy status to other drugs, medicaments and biological substances; Z79.899 Other long term (current) drug therapy